=== PATIENT | female | born 1995 | race Caucasian/White ===

== ENCOUNTER 2022-09-06 11:56 | Outpatient (RCR) | payer BC | END 2022-09-18 | disposition home or self-care (01) | LOC: EDSTATUS 11:56 → LAB 11:56 | PROVIDERS: ATTEND Nurse Practitioner | DX: K52.9 Noninfective gastroenteritis and colitis, unspecified (principal) | CPT/HCPCS: 87015; 87045; 87046; 87177; 87324; 87449; 87899; 89055 ==